=== PATIENT | female | born 2000 | race Two or more races ===

== ENCOUNTER 2023-12-23 18:46 | Emergency (ER) | payer OTHER ==
[~2023-12-23] VITALS: Ht 165.1 cm; Wt 93.4 kg
[2023-12-23] MEDS ORDERED: VAZALORE81 MG PO (19:10)
[2023-12-23] MEDS ORDERED: MACROBID 100 M100 MG (19:10)
[2023-12-23] MEDS ORDERED: ATABEX DHA 200200 MG (19:10)
[2023-12-23] MEDS ORDERED: LEVOTHYROXINE25 MCG PO (19:11)
[2023-12-23] MEDS ORDERED: FAMOTIDINE/PF 20 MG/2 ML VIAL IV ONE (19:45)
[2023-12-23] MEDS ORDERED: ONDANSETRON HCL 2 MG/ML VIAL IV ONE (19:45)
[2023-12-23] MEDS ORDERED: CEFTRIAXONE SODIUM 1,000 MG VIAL ONE (19:59)
[2023-12-23] MEDS ORDERED: FAMOTIDINE/PF 20 MG/2 ML VIAL ONE (19:59)
[2023-12-23] MEDS ORDERED: ONDANSETRON HCL 2 MG/ML VIAL ONE (19:59)
[2023-12-23] MEDS ORDERED: CEFTRIAXONE SODIUM 1,000 MG VIAL IV ONE (20:00)
[2023-12-23] MEDS ORDERED: 0.9 % SODIUM CHLORIDE 500 ML IV ONE (20:00)
[2023-12-23 20:09] LABS: HEMOGLOBIN 12.7 g/dL (12.0-15.00); MEAN CORPUSCULAR HEMOGLOBIN 30.3 pg (27.00-32.0); MEAN CORPUSCULAR HGB CONC 35.2 g/dl (32.0-36.0); PLATELET COUNT 282 K/uL (150-450); RED BLOOD COUNT 4.18 M/uL (4.00-6.00); RED CELL DISTRIBUTION WIDTH 13.7 % (11.5-14.5)
[2023-12-23 20:24] LABS: URINE APPEARANCE Turbid; URINE BILIRRUBIN Negative (NEGATIVE); URINE BLOOD Large; URINE COLOR Dark Yellow; URINE GLUCOSE Negative (NEGATIVE); URINE LEUKOCYTE Small; URINE NITRATE Negative; URINE PROTEIN 30 (NEGATIVE)
[2023-12-23 20:28] LABS: URINE BACTERIA 6561.9 uL (0.0-1933); URINE EPITHELIAL CELLS 195.7 uL (0.0-38.8); URINE RBC 2853.7 uL (0.0-20.8); URINE WBC 177.7 uL (0.0-23.2)
[2023-12-23 20:30] LABS: URINE CAST 0.91 uL (0.0-1.40); URINE KETONE >=160 (NEGATIVE)
[2023-12-23 20:39] LABS: ALBUMIN 3.6 gm/dL (3.4-5.0); BILIRUBIN TOTAL 0.64 mg/dL (0.3-1.2); CALCIUM 9.8 mg/dL (8.5-10.1); CREATININE SERUM 0.84 mg/dL (0.55-1.02); GFR 84.78; GLOBULINA 4.1 G/DL (2.4-3.5); POTASSIUM 3.47 mEq/L (3.5-5.1); TOTAL PROTEIN 7.7 gm/dL (6.4-8.2)
[2023-12-23] MEDS ORDERED: CEPHALEXIN500 M1 PO (22:55)
[2023-12-23] MEDS ORDERED: ONDANSETRON HCL4 MG PO (22:55)
== END 2023-12-23 23:26 ==
LOC: ER 18:47
PROVIDERS: Nurse Practitioner Family
DX: O23.42 Unspecified infection of urinary tract in pregnancy, second trimester (principal); N39.0 Urinary tract infection, site not specified; Z3A.24 24 weeks gestation of pregnancy; Z88.8 Allergy status to other drugs, medicaments and biological substances